=== PATIENT | male | born 1980 | race Caucasian/White ===

== ENCOUNTER 2018-04-28 16:44 | Emergency (ER) | payer MEDICAID ==
[~2018-04-28] VITALS: Ht 167.6 cm; Wt 84.7 kg
[2018-04-28 16:56] VITALS: Ht 167.6 cm; Wt 84.7 kg
[2018-04-28] MEDS ORDERED: KETOROLAC 60 MG INJ IM STA (19:06)
[2018-04-28] MEDS ORDERED: DICL100G37 TOP (19:11)
[2018-04-28] MEDS ORDERED: CYCL10TA7 PO (19:11)
[2018-04-28] MEDS ORDERED: HYDR-4011 PO (19:11)
[2018-04-28] MEDS ORDERED: MED4DP PO (19:11)
[2018-04-28] MEDS ORDERED: NAPR-985 PO (19:11)
--- NOTE | 2018-04-28 19:15 | ERD ---
ER Documentation Chief Complaint Chief Complaint Complains of back pain x 3 days HPI This is a 37-year-old male presents ED with low back pain times 3 days. Patient admits to picking up something very heavy 1 week ago. Denies any recent falls to account for pain. Patient admits to painful range of motion and decreased range of motion. Denies fever, chills, dysuria, hematuria, nausea, vomiting, diarrhea, constipation, saddle paresthesias, and bowel/bladder incontinence, tingling, numbness, lack sensation. No known drug allergies. ROS All systems reviewed and are negative except as per history of present illness. Medications Home Meds Active Scripts Methylprednisolone* (Medrol* DOSE PACK) 4 Mg/Dose-Pack Tab.ds.pk, 4 MG PO . DIRECTED for 5 Days, PACKET Prov:VAHID EL PA-C 04/28/18 Diclofenac Sodium* (Voltaren* Gel) 1% -100 Gm Gel, 2 GM TOP QID, #1 TUB Prov:VAHID EL PA-C 04/28/18 Cyclobenzaprine Hcl* (Cyclobenzaprine Hcl*) 10 Mg Tablet, 10 MG PO TID, #15 TAB Prov:VAHID EL PA-C 04/28/18 Naproxen* (Naprosyn*) 500 Mg Tablet, 500 MG PO BID PRN for PAIN AND/OR INFLAMMATION, #30 TAB Prov:VAHID EL PA-C 04/28/18 Hydrocodone/Acetaminophen (Kilgore 5-325 Tablet) 1 Each Tablet, 1 TAB PO Q6H PRN for PAIN, #7 TAB Prov:VAHID EL PA-C 04/28/18 Allergies Allergies: Coded Allergies: No Known Allergy (Unverified , 04/28/18) PMhx/Soc Medical and Surgical Hx: pt denies Medical Hx, pt denies Surgical Hx Hx Alcohol Use: No Hx Substance Use: No Hx Tobacco Use: No Smoking Status: Never smoker FmHx Family History: No diabetes Physical Exam Vitals Vital Signs Date Temp Pulse Resp B/P (MAP) Pulse Ox O2 O2 Flow FiO2 Time Delivery Rate 04/28/18 99.2 103 20 144/93 96 16:56 (110) Physical Exam Const: No acute distress Head: Atraumatic Eyes: Normal Conjunctiva ENT: Normal External Ears, Nose and Mouth. Neck: Full range of motion. No meningismus. Resp: Clear to auscultation bilaterally Cardio: Regular rate and rhythm, no murmurs Back: No thoracic or lumbar midline tenderness, there is moderate tenderness palpation along the paravertebral muscles in the right lumbar spine, positive straight leg raise on right hand side, no step-off deformities Ext: No cyanosis, or edema Neur: Awake and alert Psych: Normal Mood and Affect Results 24 hrs Current Medications Medications Dose Sig/Lyle Start Time Status Last (Trade) Ordered Route PRN Stop Time Admin Dose Reason Admin 125 mg ONCE ONCE 04/28/18 Methylprednis IM 19:30 olone Sodium 04/28/18 19:31 Succinate (Solu-Medrol) Ketorolac 60 mg ONCE STAT 04/28/18 DC Tromethamine IM 19:06 (Toradol) 04/28/18 19:07 1 tab ONCE ONCE 04/28/18 Acetaminophen PO 19:30 / 04/28/18 19:31 Hydrocodone Bitart (Kilgore (5/325)) Diazepam 2 mg ONCE ONCE 04/28/18 (Valium) PO 19:30 04/28/18 19:31 Procedures/MDM ER COURSE: The patient was given Toradol, Solu-Medrol, Valium, Kilg[place] The medication was well tolerated and the patient reports improvement in symptoms. The patient was stable throughout ED course. I kept the patient and/or family informed of laboratory and diagnostic imaging results throughout the emergency room course. The patient was promptly evaluated and a treatment plan was devised based on H&P and other data. This plan was discussed with the patient who agreed and had no further questions or concerns prior to discharge. MEDICAL DECISION MAKING: This is a 37-year-old male who presents ED with low back pain times 3 days. Given mechanism of injury and location of back pain being along the paravertebral muscles this is likely a muscle strain or muscle related pain. Given the patient has positive straight leg raise on the right hand side this is likely associated with sciatica. Patient was advised to follow-up with o rthopedic specialist to rule out herniated disc. History and physical examination other data not consistent with processing including cauda equina syndrome, cord compression, infiltrative etiology, infectious etiology, epidural abscess, fracture, obstructive pyelonephritis, abdominal aortic aneurysm. Vitals are stable and patient can be managed outpatient with close follow-up. Advised patient to follow up with primary care in the next 48 hours. return to ED with any worsening symptoms DISPOSITION PLAN: We discussed follow up with the patient's primary care doctor within 24 to 48 hours. Patient counseled regarding my diagnostic impression and care plan. Prior to discharge all questions answered. Pt agrees with treatment plan and understands strict return precautions. Precautionary instructions provided including instructions to return to the ER if not improving or for any worsening or changing symptoms or concerns. SPECIALIST FOLLOW UP RECOMMENDED:ORTHO Patient has been advised to follow up with primary care in 1-2 days. Disclaimer: Inadvertent spelling and grammatical errors are likely due to EHR/dictation software use and do not reflect on the overall quality of patient care. Also, please note that the electronic time recorded on this note does not necessarily reflect the actual time of the patient encounter. Departure Diagnosis: Primary Impression: Back pain Back pain location: low back pain Chronicity: acute Back pain laterality: right Sciatica presence: with sciatica Sciatica laterality: sciatica of right side Qualified Codes: M54.41 - Lumbago with sciatica, right side Condition: Stable Patient Instructions: Back Pain (Acute Or Chronic), Back Pain W/ Sciatica [facility] Usted se marks hecho un examen mdico de control que le indica que no est en luis e condicin que requiera tratamiento urgente en el Departamento de Emergencia. Un estudio ms profundo y el tratamiento de pineda condicin pueden esperar sin ningn riesgo hasta que usted sea atendida/o en el consultorio de pineda mdico o luis e clnica. Es responsabilidad suya arreglar luis e jessica para el seguimiento del irina. MANEJO DE CONDICIONES NO URGENTES EN EL FUTURO 1) Si usted tiene un mdico de atencin primaria: Usted debera llamar a pineda mdico de atencin primaria antes de venir al departamento de emergencia. Despus de las horas de consultorio, pineda doctor o pineda asociado/a est disponible por telfono. El mdico o enfermero de marquita en el servicio telefnico puede asesorarle por lissette medio para atender el problema, o irina contrario se puede programar luis e jessica. 2) Si usted no tiene un mdico de atencin primaria: Llame al mdico o clnica de referencia que aparece abajo noa las horas de consultorio para hacer luis e jessica para que le vean. CLINICAS: [facility] [phone] [facility] [phone] [facility] [phone] [place] [id number] [phone] [place] [phone] [facility] [phone] [address] Additional Instructions: Paciente aconseja volver a Departamento de urgencias inmediatamente para sntomas nuevos o que empeoran . Paciente aconseja posteriores con el PCP en 1-2 melednrez . Paciente verbaliza la comprehensin y est de acuerdo con el tratamiento y el curso de accin. Si el paciente no tiene ninguna de atencin primaria pueden seguir con [facility] [id number] [place] [address] o [facility] [address] [place] [address] VAHID EL PA-C Apr 28, 2018 19:15
[2018-04-28] MEDS ORDERED: METHYLPREDNISOLONE 125 MG INJ IM ONE (19:30)
[2018-04-28] MEDS ORDERED: DIAZEPAM 2 MG TAB PO ONE (19:30)
[2018-04-28] MEDS ORDERED: HYDROCODONE/APAP (5/325) TAB PO ONE (19:30)
[2018-04-28 20:15] VITALS: BP 138/87; PULSE 86; RESP 20
== END 2018-04-28 20:16 | disposition home or self-care (01) ==
LOC: FTE 16:44
DX: M54.41 Lumbago with sciatica, right side (principal)
CPT/HCPCS: 96372; 99284; J1885; J2930